=== PATIENT | female | born 1980 | race Caucasian/White ===

== ENCOUNTER → 2018-03-04 | Outpatient (CLI) | payer MEDICARE | END | disposition home or self-care (01) | LOC: PCVCCLINIC 11:02 | PROVIDERS: ATTEND Internal Medicine | DX: I95.1 Orthostatic hypotension (principal); I71.00 Dissection of unspecified site of aorta; F32.89 Other specified depressive episodes; G43.801 Other migraine, not intractable, with status migrainosus; Z88.8 Allergy status to other drugs, medicaments and biological substances; Z79.899 Other long term (current) drug therapy; Z72.89 Other problems related to lifestyle | CPT/HCPCS: 93005; G0463 ==

== ENCOUNTER → 2018-04-03 | Outpatient (CLI) | payer MEDICARE ==
--- NOTE | 2018-04-03 11:50 | PCVCIMAG ---
APPROVED REPORT Study performed: 04/03/2018 09:31:12 EXAM: Comprehensive 2D, Doppler, and color-flow Echocardiogram Patient Location: Echo lab Room #: 2Status: routine BSA: 2.13 HR: 58 bpmBP: 116/74 mmHg Rhythm: Sinus Bradycardia with sinus arrhythmia Other Information Study Quality: Good Risk Factors: Cardiac Risk Factors: hypotension, Indications Syncope 2D Dimensions IVSd: 6.92 (7-11mm)LVOT Diam: 20.41 (18-24mm) LVDd: 46.45 mm PWd: 6.61 (7-11mm)Ascending Ao: 25.50 (22-36mm) LVDs: 34.25 (25-40mm) Left Atrium: 31.98 (27-40mm) Aortic Root: 24.16 mm LV Single Plane 4CH: 52.64 % LV Single Plane 2CH: 58.85 % Biplane EF: 56.0 % Volumes Left Atrial Volume (Systole) Single Plane 4CH: 41.03 mLSingle Plane 2CH: 31.77 mL Biplane LA Volume: 37.00 mLLA ESV Index: 17.00 mL/m2 Aortic Valve AoV Peak Montez.: 1.08 m/s AO Peak Gr.: 4.72 mmHgLVOT Max P.30 mmHg LVOT Max V: 0.69 m/s CESARIO Vmax: 2.08 cm2 Mitral Valve E/A Ratio: 1.5 MV Decel. Time: 154.68 ms MV E Max Montez.: 0.77 m/s MV A Montez.: 0.52 m/s TDI E/Lateral E': 4.81E/Medial E': 6.42 Medial E' Montez.: 0.12 m/s Lateral E' Montez.: 0.16 m/s Pulmonary Valve PV Peak Montez.: 0.83 m/sPV Peak Gr.: 2.73 mmHg Pulmonary Vein P Vein S: 0.52 m/sP Vein A: 0.25 m/s P Vein D: 0.32 m/sP Vein A Dur.: 76.1 msec P Vein S/D Ratio: 1.63 Tricuspid Valve TR Peak Montez.: 2.03 m/s TR Peak Gr.: 16.56 mmHg TV Vmax: 0.82 m/sPA Pressure: 24.00 mmHg Left Ventricle The left ventricle is normal size. There is normal LV segmental wall motion. There is normal left ventricular wall thickness. Left ventricular systolic function is normal. The left ventricular ejection fraction is within the normal range. LVEF is 55-60%. The left ventricular diastolic function is normal. Right Ventricle The right ventricle is normal size. The right ventricular systolic function is normal. Atria The left atrium size is normal. The right atrium size is normal. Aortic Valve The aortic valve is normal in structure and function. No aortic regurgitation is present. There is no aortic valvular stenosis. Mitral Valve The mitral valve is normal in structure. There is no mitral valve regurgitation noted. No evidence of mitral valve stenosis. Borderline prolapse. Tricuspid Valve The tricuspid valve is normal in structure. Trace to mild tricuspid regurgitation with a PA pressure of 24 mmHg. Pulmonic Valve The pulmonary valve is normal in structure. There is no pulmonic valvular regurgitation. Great Vessels The aortic root is normal in size. The ascending aorta is normal in size. Aortic arch is normal in caliber. IVC is normal in size and collapses >50% with inspiration. Pericardium There is no pericardial effusion. There is no pleural effusion. <Conclusion> The left ventricle is normal size. LVEF is 55-60%. The aortic valve is normal in structure and function. The mitral valve is normal in structure. The tricuspid valve is normal in structure. Trace to mild tricuspid regurgitation with a PA pressure of 24 mmHg. The pulmonary valve is normal in structure. The ascending aorta is normal in size. Aortic arch is normal in caliber. There is no pericardial effusion. There is no pleural effusion.
== END | disposition home or self-care (01) ==
LOC: PCVCIMAG 09:07
PROVIDERS: ATTEND Internal Medicine
DX: I95.9 Hypotension, unspecified (principal); R55 Syncope and collapse
CPT/HCPCS: 93306